=== PATIENT | female | born 1965 | race Native Hawaiian/Other Pacific Islander ===

== ENCOUNTER 2017-02-21 08:24 | Outpatient (CLI) | payer OTHER ==
[~2017-02-21 08:24] MED LIST: AMIT25TA22 PO; FLUO20CA6 PO; HYDR-2748 PO; HYDR25TA60 PO; LEVO500T PO; METOPROL TAR25 MG OR; NEURONTIN600 MG PO; PREDNISONE10 M1 OR; SOMA350 MG PO; VICTOZA18 MG/3 ML SC; XANAX0.5 MG PO; ZANAFLEX4 MG OR; ZANTAC150 MG OR
== END 2017-02-21 10:00 | disposition home or self-care (01) ==
LOC: MAMMO 08:24
DX: Z12.31 Encounter for screening mammogram for malignant neoplasm of breast (principal)
CPT/HCPCS: G0202-TC

== ENCOUNTER 2017-04-19 08:28 | Emergency (ER) | payer OTHER ==
[~2017-04-19] VITALS: Ht 177.8 cm; Wt 104.3 kg
[2017-04-19] MEDS ORDERED: LYRICA75 MG OR (08:51)
[2017-04-19] MEDS ORDERED: HYDR10TA51 PO (08:52)
[2017-04-19] MEDS ORDERED: VENLAFAXINE37.5 ER PO (08:53)
[2017-04-19] MEDS ORDERED: FLUO10CA2 PO (08:53)
[2017-04-19] MEDS ORDERED: BACLOFEN10 MG OR (08:53)
[2017-04-19] MEDS ORDERED: ALPR0.5T24 PO (08:54)
[2017-04-19 09:00] LABS: PLATELET COUNT 209 K/uL (152-353)
[2017-04-19 09:05] LABS: POTASSIUM 4.1 mmol/L (3.6-5.2); SODIUM 136 mmol/L (136-145)
[2017-04-19 09:42] VITALS: TEMP 98
[2017-04-19 11:44] VITALS: BP 148/71
== END 2017-04-19 11:50 | disposition home or self-care (01) ==
LOC: ED 08:28
DX: S00.83XA Contusion of other part of head, initial encounter (principal); S70.02XA Contusion of left hip, initial encounter; W07.XXXA Fall from chair, initial encounter; Y92.098 Other place in other non-institutional residence as the place of occurrence of the external cause
CPT/HCPCS: 80053; 80307; 81000; 85027; 99283; G0479

== ENCOUNTER 2021-09-05 10:10 | Emergency (ER) | payer OTHER ==
[~2021-09-05] VITALS: Ht 177.8 cm; Wt 135.6 kg
[2021-09-05 10:10] VITALS: TEMP 97.8
[~2021-09-05 10:10] MED LIST changes: +ALPR0.5T24 PO; +BACLOFEN10 MG OR; +FLUO10CA2 PO; +HYDR10TA51 PO; +LYRICA75 MG OR; +VENLAFAXINE37.5 ER PO
[2021-09-05 12:40] VITALS: BP 132/65
== END 2021-09-05 12:40 | disposition home or self-care (01) ==
LOC: ED 10:19
DX: M54.59 Other low back pain (principal); G89.29 Other chronic pain; M25.512 Pain in left shoulder; M25.552 Pain in left hip; M25.551 Pain in right hip; W18.39XA Other fall on same level, initial encounter; Y92.89 Other specified places as the place of occurrence of the external cause
CPT/HCPCS: 96372; 99283; J1885; J2930; Q9963